=== PATIENT | male | born 1985 | race African-American/Black ===

== ENCOUNTER 2020-03-08 08:49 | Inpatient (IN) | payer MEDICAID ==
[~2020-03-08] VITALS: Ht 167.6 cm; Wt 69.2 kg
[2020-03-08] MEDS ORDERED: SODIUM CHLORIDE 0.9% 1000ML BAG (SEPSIS BOLUS) IV ONE (09:30)
[2020-03-08 09:46] LABS: BASOPHILS % 0.4 % (0.0-2.0); CHLORIDE 100 mEq/L (98-107); EOSINOPHILS % 0.7 % (0.0-5.0); HEMATOCRIT. 36.6 % (42.0-52.0); HEMOGLOBIN. 11.9 g/dL (14.0-18.0); LYMPHOCYTES % 7.8 % (20.0-50.0); MEAN CORPUSCULAR HEMOGLOBIN 28.6 pg (28.0-32.0); MEAN CORPUSCULAR VOLUME 87.7 fL (80.0-94.0); MONOCYTES % 10.2 % (2.0-8.0); NEUTROPHILS % 80.9 % (40.0-76.0); PLATELET 234 x1000/uL (130-400); RED BLOOD CELL COUNT 4.17 mill/uL (4.7-6.1); RED CELL DISTRIBUTION WIDTH 14.7 % (11.6-14.6)
[2020-03-08 09:51] LABS: INR 1.2; PROTHROMBIN TIME 12.5 sec (9.6-11.0)
[2020-03-08 11:37] LABS: CLARITY URINE CLOUDY (CLEAR); COLOR URINE DK YELLOW (YELLOW); KETONES URINE NEGATIVE (NEGATIVE); LEUKOCYTE ESTERASE URINE NEGATIVE (NEGATIVE); NITRITE URINE NEGATIVE (NEGATIVE); OCCULT BLOOD URINE 2+ (NEGATIVE); PROTEIN URINE 2+ (NEGATIVE); SPECIFIC GRAVITY URINE 1.031 (1.005-1.030)
[2020-03-08] MEDS ORDERED: KETOROLAC 15MG/ML VIAL IV ONE ×2 (12:15→14:00)
[2020-03-08] MEDS ORDERED: POLYVINYL ALCOHOL OPHTH DROPS 15ML BOTHEYE PRN (12:30)
[2020-03-08] MEDS ORDERED: TETRACAINE 0.5% OPHTH DROPS 4ML BOTHEYE ONE (12:30)
[2020-03-08] MEDS ORDERED: PENICILLIN G BENZATHINE 2,400,000 UNITS/4ML SYR IM ONE (12:30)
[2020-03-08] MEDS: SODIUM CHLORIDE 0.9% 1,000 ML IV SCH (14:32)
[2020-03-08 15:47] LABS: TOTAL IRON BINDING CAPACITY 199 ug/dL (250-450)
[2020-03-08] MEDS: CETIRIZINE 10MG TABLET PO SCH (16:03)
[2020-03-08] MEDS: METHYLPREDNISOLONE SOD SUCC 40 MG/ML VIAL IV SCH ×2 (16:03→22:46)
[2020-03-08] MEDS ORDERED: [UNRECOGNIZED DRUG - OTHER] XX SCH (17:15)
[2020-03-08] MEDS ORDERED: IPRATROPIUM/ALBUTEROL 0.5-3(2.5)MG/3ML NEB HHN PRN (17:15)
[2020-03-08] MEDS ORDERED: ACETAMINOPHEN 325MG TABLET PO PRN (17:15)
[2020-03-08 17:47] VITALS: BP 134/75
[2020-03-08 18:00] VITALS: BP 134/75
[2020-03-08] MEDS: ONDANSETRON HCL 4MG/2ML INJ IV PRN (19:33)
[2020-03-08] MEDS: POLYVINYL ALCOHOL OPHTH DROPS 15ML BOTHEYE SCH ×2 (19:33→23:29)
[2020-03-08 20:00] VITALS: BP 118/65
[2020-03-08] MEDS: MAGIC MOUTHWASH PO SCH (20:54)
[2020-03-08] MEDS: LEVETIRACETAM 500MG TABLET PO SCH (21:14)
[2020-03-08] MEDS: GUAIFENESIN 600MG ER TABLET PO SCH (21:14)
[2020-03-08 21:40] VITALS: BP 130/76
[2020-03-08] MEDS ORDERED: FOLI-43 PO (22:19)
[2020-03-08] MEDS ORDERED: AMLO5TAB88 PO (22:19)
[2020-03-08] MEDS ORDERED: PHEN100C12 PO (22:19)
[2020-03-08] MEDS ORDERED: LEVE500T19 PO (22:19)
[2020-03-08] MEDS: HYDROCORTISONE 1% CREAM 30GM TOP SCH (22:45)
[2020-03-08] MEDS: FLUTICASONE PROPIONATE 50MCG/SPRAY BOTTLE BOTHNSTRLS SCH (22:45)
[2020-03-09] VITALS: BP 131/79
[2020-03-09 01:07] LABS: *AMPHETAMINES SCREEN URINE NEGATIVE (NEGATIVE); *BARBITURATES SCREEN URINE NEGATIVE (NEGATIVE)
[2020-03-09 01:08] LABS: *BENZODIAZEPINES SCREEN URINE NEGATIVE (NEGATIVE); *COCAINE SCREEN URINE NEGATIVE (NEGATIVE); CANNABINOID URINE SCREEN NEGATIVE (NEGATIVE); METHADONE URINE SCREEN NEGATIVE (NEGATIVE); OPIATES URINE SCREEN NEGATIVE (NEGATIVE); PHENCYCLIDINE URINE SCREEN NEGATIVE (NEGATIVE)
[2020-03-09] MEDS: HYDROCODONE/ACETAMINOPHEN 5/325MG TABLET PO PRN ×4 (02:57→21:08)
[2020-03-09] MEDS: SODIUM CHLORIDE 0.9% 1,000 ML IV SCH ×2 (03:47→17:06)
[2020-03-09 04:00] VITALS: BP 110/73
[2020-03-09] MEDS: POLYVINYL ALCOHOL OPHTH DROPS 15ML BOTHEYE SCH ×3 (05:07→16:26)
[2020-03-09] MEDS: METHYLPREDNISOLONE SOD SUCC 40 MG/ML VIAL IV SCH ×2 (05:08→13:14)
[2020-03-09 06:38] LABS: CHLORIDE 103 mEq/L (98-107)
[2020-03-09 06:56] LABS: HEMOGLOBIN. 11.7 g/dL (14.0-18.0); MEAN CORPUSCULAR HEMOGLOBIN 29.3 pg (28.0-32.0); MEAN CORPUSCULAR VOLUME 88.2 fL (80.0-94.0); MEAN PLATELET VOLUME 8.4 fl (7.4-10.4); PLATELET 248 x1000/uL (130-400); RED BLOOD CELL COUNT 3.97 mill/uL (4.7-6.1); RED CELL DISTRIBUTION WIDTH 14.7 % (11.6-14.6)
[2020-03-09 08:00] VITALS: BP 96/67
[2020-03-09] MEDS: GUAIFENESIN 600MG ER TABLET PO SCH ×2 (08:42→21:08)
[2020-03-09] MEDS: FLUTICASONE PROPIONATE 50MCG/SPRAY BOTTLE BOTHNSTRLS SCH ×2 (08:42→21:10)
[2020-03-09] MEDS: CETIRIZINE 10MG TABLET PO SCH (08:42)
[2020-03-09] MEDS: HYDROCORTISONE 1% CREAM 30GM TOP SCH ×2 (08:43→21:10)
[2020-03-09] MEDS: MAGIC MOUTHWASH PO SCH ×3 (08:43→16:27)
[2020-03-09] MEDS: LEVETIRACETAM 500MG TABLET PO SCH ×2 (08:45→21:08)
[2020-03-09 12:00] VITALS: BP 120/83
[2020-03-09 14:59] LABS: PLATELET ESTIMATE NORMAL
[2020-03-09 16:00] VITALS: BP 123/86
[2020-03-09 17:16] LABS: CARCINO EMBRYONIC ANTIGEN 0.6 ng/ml
[2020-03-09 17:28] LABS: HEPATITIS B SURFACE ANTIGEN NEGATIVE
[2020-03-09 17:57] LABS: HEPATITIS A AB IGM NEGATIVE (NEGATIVE)
[2020-03-09 20:00] VITALS: BP 131/8
[2020-03-10] VITALS (7 sets, daily range): BP systolic 114–138; BP diastolic 74–92
[2020-03-10] MEDS: POLYVINYL ALCOHOL OPHTH DROPS 15ML BOTHEYE SCH ×4 (01:06→18:22)
[2020-03-10] MEDS: HYDROCODONE/ACETAMINOPHEN 5/325MG TABLET PO PRN ×4 (06:16→22:50)
[2020-03-10 07:11] LABS: HEMATOCRIT. 34.1 % (42.0-52.0); HEMOGLOBIN. 11.4 g/dL (14.0-18.0); MEAN CORPUSCULAR VOLUME 87.1 fL (80.0-94.0); MEAN PLATELET VOLUME 8.3 fl (7.4-10.4); PLATELET 297 x1000/uL (130-400); RED BLOOD CELL COUNT 3.92 mill/uL (4.7-6.1); RED CELL DISTRIBUTION WIDTH 14.4 % (11.6-14.6)
[2020-03-10 07:47] LABS: CHLORIDE 103 mEq/L (98-107)
[2020-03-10] MEDS: GUAIFENESIN 600MG ER TABLET PO SCH ×2 (08:22→20:52)
[2020-03-10] MEDS: LEVETIRACETAM 500MG TABLET PO SCH ×2 (08:23→20:52)
[2020-03-10] MEDS: FLUTICASONE PROPIONATE 50MCG/SPRAY BOTTLE BOTHNSTRLS SCH ×2 (08:23→20:53)
[2020-03-10] MEDS: CETIRIZINE 10MG TABLET PO SCH (08:23)
[2020-03-10] MEDS: MAGIC MOUTHWASH PO SCH ×3 (08:24→18:22)
[2020-03-10] MEDS: HYDROCORTISONE 1% CREAM 30GM TOP SCH ×2 (08:24→20:54)
[2020-03-10] MEDS: SODIUM CHLORIDE 0.9% 1,000 ML IV SCH ×2 (10:39→23:04)
[2020-03-10] MEDS ORDERED: POTASSIUM CHLORIDE INJ 40 MEQ in DEXT 5% WATER 250 ML IV SCH (11:00)
[2020-03-10 13:22] LABS: PLATELET ESTIMATE NORMAL
[2020-03-10] MEDS: ACETAMINOPHEN 325MG TABLET PO PRN ×2 (20:52→22:01)
[2020-03-11 00:15] VITALS: BP 115/76
[2020-03-11] MEDS: POLYVINYL ALCOHOL OPHTH DROPS 15ML BOTHEYE SCH ×4 (00:48→17:12)
[2020-03-11 04:00] VITALS: BP 127/79
[2020-03-11 04:08] LABS: HIV SCREEN 4G Non Reactive (Non Reactive)
[2020-03-11 06:52] LABS: CHLORIDE 101 mEq/L (98-107)
[2020-03-11 06:56] LABS: HEMATOCRIT. 33.2 % (42.0-52.0); MEAN CORPUSCULAR HEMOGLOBIN 29.2 pg (28.0-32.0); MEAN CORPUSCULAR VOLUME 87.9 fL (80.0-94.0); MEAN PLATELET VOLUME 8.3 fl (7.4-10.4); PLATELET 311 x1000/uL (130-400); RED BLOOD CELL COUNT 3.78 mill/uL (4.7-6.1); RED CELL DISTRIBUTION WIDTH 14.6 % (11.6-14.6)
[2020-03-11 08:00] VITALS: BP 131/81
[2020-03-11] MEDS: LEVETIRACETAM 500MG TABLET PO SCH ×2 (09:00→20:14)
[2020-03-11] MEDS: FLUTICASONE PROPIONATE 50MCG/SPRAY BOTTLE BOTHNSTRLS SCH ×2 (09:00→20:22)
[2020-03-11] MEDS: GUAIFENESIN 600MG ER TABLET PO SCH ×2 (09:12→20:12)
[2020-03-11] MEDS: CETIRIZINE 10MG TABLET PO SCH (09:12)
[2020-03-11] MEDS: HYDROCORTISONE 1% CREAM 30GM TOP SCH ×2 (09:14→20:22)
[2020-03-11] MEDS: MAGIC MOUTHWASH PO SCH ×3 (09:14→17:12)
[2020-03-11] MEDS: HYDROCODONE/ACETAMINOPHEN 5/325MG TABLET PO PRN ×3 (09:22→18:11)
[2020-03-11 12:00] VITALS: BP 140/82
[2020-03-11] MEDS: SODIUM CHLORIDE 0.9% 1,000 ML IV SCH ×2 (13:15→20:26)
[2020-03-11 13:41] LABS: PLATELET ESTIMATE NORMAL
[2020-03-11 16:00] VITALS: BP 135/62
[2020-03-11 20:00] VITALS: BP 156/84
[2020-03-11] MEDS: ACETAMINOPHEN 325MG TABLET PO PRN (20:13)
[2020-03-12] VITALS: BP 123/73
[2020-03-12] MEDS: POLYVINYL ALCOHOL OPHTH DROPS 15ML BOTHEYE SCH ×6 (00:09→20:54)
[2020-03-12 04:00] VITALS: BP 144/93
[2020-03-12 08:00] VITALS: BP 147/97
[2020-03-12] MEDS: LEVETIRACETAM 500MG TABLET PO SCH ×2 (09:00→20:51)
[2020-03-12] MEDS: GUAIFENESIN 600MG ER TABLET PO SCH ×2 (09:00→20:51)
[2020-03-12] MEDS: CETIRIZINE 10MG TABLET PO SCH (09:00)
[2020-03-12] MEDS: MAGIC MOUTHWASH PO SCH ×3 (09:00→17:00)
[2020-03-12] MEDS: HYDROCORTISONE 1% CREAM 30GM TOP SCH ×2 (09:03→20:53)
[2020-03-12 09:30] LABS: HEMATOCRIT. 34.7 % (42.0-52.0); HEMOGLOBIN. 11.4 g/dL (14.0-18.0); MEAN CORPUSCULAR HEMOGLOBIN 28.8 pg (28.0-32.0); MEAN CORPUSCULAR VOLUME 87.6 fL (80.0-94.0); MEAN PLATELET VOLUME 8.3 fl (7.4-10.4); PLATELET 318 x1000/uL (130-400); RED BLOOD CELL COUNT 3.96 mill/uL (4.7-6.1); RED CELL DISTRIBUTION WIDTH 14.6 % (11.6-14.6)
[2020-03-12 09:38] LABS: CHLORIDE 100 mEq/L (98-107)
[2020-03-12 12:00] VITALS: BP 145/92
[2020-03-12] MEDS: SODIUM CHLORIDE 0.9% 1,000 ML IV SCH ×2 (12:55→20:53)
[2020-03-12 13:07] LABS: ANTI-MYELOPEROXIDASE AB < 9.0 U/mL (0.0-9.0); ANTI-PROTEINASE 3 ABS < 3.5 U/mL (0.0-3.5); ATYPICAL P-ANCA <1:20 titer (Neg:<1:20); CYTOPLASMIC C-ANCA <1:20 titer (Neg:<1:20); PERINUCLEAR P-ANCA <1:20 titer (Neg:<1:20)
[2020-03-12 14:07] LABS: PLATELET ESTIMATE NORMAL
[2020-03-12 16:00] VITALS: BP 158/84
[2020-03-12] MEDS: CEFTRIAXONE 1,000 MG in DEXTROSE 5% WATER 50 ML IV SCH (17:40)
[2020-03-12] MEDS ORDERED: SODIUM CHLORIDE 0.9% 500 ML IV ONE ×2 (18:20→18:30)
[2020-03-12] MEDS ORDERED: METOPROLOL TARTRATE 25MG TABLET PO NR (18:45)
[2020-03-12] MEDS ORDERED: ACETAMINOPHEN 650MG/20.3ML UDC PO PRN (20:05)
[2020-03-12] MEDS: THROAT LOZENGES-BENZOCAINE/MENTH/CETYLPYRD CL LOZENGES MM PRN (20:49)
[2020-03-12] MEDS: ONDANSETRON HCL 4MG/2ML INJ IV PRN (20:51)
[2020-03-12] MEDS: HYDROCODONE/ACETAMINOPHEN 5/325MG TABLET PO PRN (20:52)
[2020-03-12] MEDS ORDERED: HYDROXYCHLOROQUINE SULFATE 200MG TABLET PO SCH (23:45)
[2020-03-12] MEDS ORDERED: CELECOXIB 200MG CAPSULE PO SCH (23:45)
[2020-03-13] VITALS: BP 124/85
[2020-03-13] MEDS: POLYVINYL ALCOHOL OPHTH DROPS 15ML BOTHEYE SCH ×3 (06:00→21:16)
[2020-03-13 07:10] LABS: DRVVT LA 50.5 sec (0.0-47.0); DRVVT MIX LA 42.7 sec (0.0-47.0); LUPUS ANTICOAG INTERPRETATION Comment: (.); PTT-LA 45.8 sec (0.0-51.9)
[2020-03-13 07:33] LABS: HEMOGLOBIN. 11.5 g/dL (14.0-18.0); MEAN CORPUSCULAR HEMOGLOBIN 29.3 pg (28.0-32.0); MEAN CORPUSCULAR VOLUME 86.8 fL (80.0-94.0); MEAN PLATELET VOLUME 7.9 fl (7.4-10.4); PLATELET 415 x1000/uL (130-400); RED BLOOD CELL COUNT 3.92 mill/uL (4.7-6.1); RED CELL DISTRIBUTION WIDTH 14.3 % (11.6-14.6)
[2020-03-13 07:47] LABS: CHLORIDE 101 mEq/L (98-107)
[2020-03-13 08:00] VITALS: BP 112/72
[2020-03-13 08:00] LABS: CREATINE KINASE 36 IU/L (39-308)
[2020-03-13 08:01] LABS: FOLIC ACID (FOLATE) SERUM 17.2 ng/mL (>5.38)
[2020-03-13] MEDS: CELECOXIB 200MG CAPSULE PO SCH ×2 (09:00→16:14)
[2020-03-13] MEDS: LEVETIRACETAM 500MG TABLET PO SCH ×2 (09:00→21:00)
[2020-03-13] MEDS: HYDROXYCHLOROQUINE SULFATE 200MG TABLET PO SCH ×2 (09:00→16:14)
[2020-03-13] MEDS: TRIAMCINOLONE ACETONIDE 0.1% CREAM 15GM TOP SCH ×2 (09:00→21:00)
[2020-03-13] MEDS: MAGIC MOUTHWASH PO SCH ×3 (09:00→16:14)
[2020-03-13] MEDS: CETIRIZINE 10MG TABLET PO SCH (09:00)
[2020-03-13] MEDS: HYDROCORTISONE 1% CREAM 30GM TOP SCH ×2 (09:00→21:00)
[2020-03-13] MEDS: GUAIFENESIN 600MG ER TABLET PO SCH ×2 (09:00→21:00)
[2020-03-13 11:49] LABS: PLATELET ESTIMATE NORMAL
[2020-03-13 12:00] VITALS: BP 120/63
[2020-03-13] MEDS ORDERED: POTASSIUM CHLORIDE INJ 40 MEQ in DEXT 5% WATER 250 ML IV SCH (14:00)
[2020-03-13 16:00] VITALS: BP 126/63
[2020-03-13] MEDS: ACETAMINOPHEN 325MG TABLET PO PRN (16:13)
[2020-03-13 17:06] LABS: ANTI-NUCLEAR ANTIBODIES DIRECT Positive (Negative)
[2020-03-13] MEDS: CEFTRIAXONE 1,000 MG in DEXTROSE 5% WATER 50 ML IV SCH (17:30)
[2020-03-14 00:44] VITALS: BP 135/81
[2020-03-14 04:00] VITALS: BP 130/85
[2020-03-14] MEDS: POLYVINYL ALCOHOL OPHTH DROPS 15ML BOTHEYE SCH ×4 (05:51→23:11)
[2020-03-14] MEDS: SODIUM CHLORIDE 0.9% 1,000 ML IV SCH ×2 (05:51→12:45)
[2020-03-14 09:10] LABS: G6PD RBC 3.76 x10E6/uL (4.14-5.80)
[2020-03-14 09:55] VITALS: BP 118/69
[2020-03-14] MEDS: MAGIC MOUTHWASH PO SCH ×3 (10:27→17:24)
[2020-03-14] MEDS: TRIAMCINOLONE ACETONIDE 0.1% CREAM 15GM TOP SCH ×2 (10:29→20:41)
[2020-03-14] MEDS: HYDROXYCHLOROQUINE SULFATE 200MG TABLET PO SCH ×2 (10:41→17:24)
[2020-03-14] MEDS: GUAIFENESIN 600MG ER TABLET PO SCH ×2 (10:42→20:41)
[2020-03-14] MEDS: CETIRIZINE 10MG TABLET PO SCH (10:43)
[2020-03-14] MEDS: CELECOXIB 200MG CAPSULE PO SCH ×2 (10:43→17:24)
[2020-03-14] MEDS: LEVETIRACETAM 500MG TABLET PO SCH ×2 (10:44→20:35)
[2020-03-14] MEDS ORDERED: METHYLPREDNISOLONE SOD SUCC 40 MG/ML VIAL IV NR (11:00)
[2020-03-14 11:20] LABS: CHLORIDE 98 mEq/L (98-107)
[2020-03-14 12:05] LABS: HEPATITIS B SURFACE AB 3.3 mIU/mL
[2020-03-14 12:15] LABS: HEPATITIS B SURFACE ANTIGEN NEGATIVE
[2020-03-14 12:44] VITALS: BP 114/73
[2020-03-14] MEDS ORDERED: EZ-HD SUSPENSION(BARIUM SULFATE 340GM) PO ONE (12:51)
[2020-03-14] MEDS ORDERED: BARIUM SULFATE 176 GM SUSP.RECON ONE (12:51)
[2020-03-14] MEDS ORDERED: SIMETHICONE/SOD BICARB/CIT AC 1 EACH GRAN.EF.PK ONE (12:52)
[2020-03-14 15:10] LABS: RNP ANTIBODY 3.5 AI (0.0-0.9); SMITH ANTIBODY < 0.2 AI (0.0-0.9)
[2020-03-14] MEDS: HYDROCORTISONE 1% CREAM 30GM TOP SCH ×2 (15:10→20:41)
[2020-03-14 15:49] LABS: BASOPHILS % 0.3 % (0.0-2.0); EOSINOPHILS % 0.1 % (0.0-5.0); HEMATOCRIT. 39.3 % (42.0-52.0); LYMPHOCYTES % 7.6 % (20.0-50.0); MEAN CORPUSCULAR HEMOGLOBIN 29.1 pg (28.0-32.0); MEAN CORPUSCULAR VOLUME 87.8 fL (80.0-94.0); MEAN PLATELET VOLUME 7.2 fl (7.4-10.4); PLATELET 491 x1000/uL (130-400); RED BLOOD CELL COUNT 4.47 mill/uL (4.7-6.1); RED CELL DISTRIBUTION WIDTH 14.4 % (11.6-14.6)
[2020-03-14] MEDS: CEFTRIAXONE 1,000 MG in DEXTROSE 5% WATER 50 ML IV SCH (16:50)
[2020-03-14 16:58] VITALS: BP 124/79
[2020-03-14] MEDS: LORAZEPAM 2MG/ML CPJ IV PRN ×2 (18:10→23:11)
[2020-03-14 21:25] VITALS: BP 119/78
[2020-03-15 01:35] VITALS: BP 108/63
[2020-03-15] MEDS: SODIUM CHLORIDE 0.9% 1,000 ML IV SCH ×2 (03:31→17:56)
[2020-03-15] MEDS: POLYVINYL ALCOHOL OPHTH DROPS 15ML BOTHEYE SCH ×4 (06:00→23:51)
[2020-03-15 06:10] VITALS: BP 144/84
[2020-03-15 07:32] LABS: HEMATOCRIT. 33.5 % (42.0-52.0); HEMOGLOBIN. 11.3 g/dL (14.0-18.0); MEAN CORPUSCULAR HEMOGLOBIN 29.1 pg (28.0-32.0); MEAN CORPUSCULAR VOLUME 86.4 fL (80.0-94.0); MEAN PLATELET VOLUME 7.5 fl (7.4-10.4); PLATELET 434 x1000/uL (130-400); RED BLOOD CELL COUNT 3.87 mill/uL (4.7-6.1); RED CELL DISTRIBUTION WIDTH 14.7 % (11.6-14.6)
[2020-03-15 08:03] VITALS: BP 117/86
[2020-03-15 08:23] LABS: CHLORIDE 104 mEq/L (98-107)
[2020-03-15] MEDS: LEVETIRACETAM 500MG TABLET PO SCH ×2 (09:00→21:00)
[2020-03-15] MEDS: MAGIC MOUTHWASH PO SCH ×3 (09:41→17:57)
[2020-03-15] MEDS: TRIAMCINOLONE ACETONIDE 0.1% CREAM 15GM TOP SCH ×2 (09:42→21:00)
[2020-03-15] MEDS: HYDROCORTISONE 1% CREAM 30GM TOP SCH ×2 (09:43→21:00)
[2020-03-15] MEDS: METHOTREXATE SODIUM 2 . 5MG TABLET PO SCH ×3 (09:43→17:58)
[2020-03-15] MEDS: PREDNISONE 10MG TABLET PO SCH ×2 (09:44→17:58)
[2020-03-15] MEDS: HYDROXYCHLOROQUINE SULFATE 200MG TABLET PO SCH ×2 (09:44→17:57)
[2020-03-15] MEDS: CELECOXIB 200MG CAPSULE PO SCH ×2 (09:44→17:57)
[2020-03-15] MEDS: CETIRIZINE 10MG TABLET PO SCH (09:44)
[2020-03-15] MEDS: FOLIC ACID 1MG TABLET PO SCH (09:45)
[2020-03-15] MEDS: THROAT LOZENGES-BENZOCAINE/MENTH/CETYLPYRD CL LOZENGES MM PRN (09:45)
[2020-03-15] MEDS: GUAIFENESIN 600MG ER TABLET PO SCH ×2 (09:45→21:00)
[2020-03-15 10:01] LABS: ATYPICAL LYMPHOCYTES 1
[2020-03-15 10:03] LABS: PLATELET ESTIMATE SLIGHTLY INCREASED
[2020-03-15 12:00] VITALS: BP 141/79
[2020-03-15 16:19] VITALS: BP 129/87
[2020-03-15] MEDS: CEFTRIAXONE 1,000 MG in DEXTROSE 5% WATER 50 ML IV SCH (17:56)
[2020-03-15] MEDS ORDERED: PHENOL/SODIUM PHENOLATE 1.4% SRPAY 177ML MM ONE (18:00)
[2020-03-15 20:00] VITALS: BP 122/84
[2020-03-16] MEDS: POLYVINYL ALCOHOL OPHTH DROPS 15ML BOTHEYE SCH ×2 (05:07→12:00)
[2020-03-16] MEDS: SODIUM CHLORIDE 0.9% 1,000 ML IV SCH (06:11)
[2020-03-16 07:53] LABS: HEMATOCRIT. 35.1 % (42.0-52.0); HEMOGLOBIN. 11.6 g/dL (14.0-18.0); MEAN CORPUSCULAR HEMOGLOBIN 28.8 pg (28.0-32.0); MEAN CORPUSCULAR VOLUME 87.2 fL (80.0-94.0); MEAN PLATELET VOLUME 7.4 fl (7.4-10.4); PLATELET 497 x1000/uL (130-400); RED BLOOD CELL COUNT 4.02 mill/uL (4.7-6.1); RED CELL DISTRIBUTION WIDTH 14.6 % (11.6-14.6)
[2020-03-16 08:22] VITALS: BP 130/87
[2020-03-16] MEDS: HYDROXYCHLOROQUINE SULFATE 200MG TABLET PO SCH (09:00)
[2020-03-16] MEDS: PREDNISONE 10MG TABLET PO SCH (09:00)
[2020-03-16] MEDS: TRIAMCINOLONE ACETONIDE 0.1% CREAM 15GM TOP SCH (09:00)
[2020-03-16] MEDS: CELECOXIB 200MG CAPSULE PO SCH (09:00)
[2020-03-16] MEDS: MAGIC MOUTHWASH PO SCH ×2 (09:00→13:00)
[2020-03-16] MEDS: CETIRIZINE 10MG TABLET PO SCH (09:00)
[2020-03-16] MEDS: FOLIC ACID 1MG TABLET PO SCH (09:00)
[2020-03-16] MEDS: HYDROCORTISONE 1% CREAM 30GM TOP SCH (09:00)
[2020-03-16] MEDS: GUAIFENESIN 600MG ER TABLET PO SCH (09:00)
[2020-03-16] MEDS: LEVETIRACETAM 500MG TABLET PO SCH (09:00)
[2020-03-16 09:02] LABS: CHLORIDE 103 mEq/L (98-107)
[2020-03-16 12:13] VITALS: BP 143/71
[2020-03-16 13:49] LABS: PLATELET ESTIMATE INCREASED
[2020-03-16] MEDS ORDERED: POTASSIUM CHLORIDE 20MEQ TABLET SR PO NR (14:15)
[2020-03-16] MEDS ORDERED: GUAI-735 MT (15:26)
[2020-03-16] MEDS ORDERED: POLY15DR31 EACHEYE (15:26)
[2020-03-16] MEDS ORDERED: HC A30CR10 RC (15:26)
[2020-03-16] MEDS ORDERED: PHEN20SP MT (15:26)
[2020-03-16] MEDS ORDERED: CELE200C PO (15:26)
[2020-03-16] MEDS ORDERED: HYDR200T35 PO (15:26)
[2020-03-16] MEDS ORDERED: CETI10TA6 PO (15:26)
[2020-03-16] MEDS ORDERED: PRED10TA PO (15:26)
[2020-03-16] MEDS ORDERED: PANT40TA4 MT (15:26)
[2020-03-16] MEDS ORDERED: METH2.5T PO (15:26)
[2020-03-16] MEDS ORDERED: TC1C15 TOP (15:26)
[2020-03-16] MEDS ORDERED: XLV MT (15:26)
[2020-03-16] MEDS ORDERED: GUAI-740 MT (15:29)
[2020-03-16 15:48] VITALS: BP 151/98
[2020-03-16 16:18] VITALS: BP 151/98
[2020-03-16] MEDS ORDERED: LEUC5TAB PO (17:00)
== END 2020-03-16 17:18 | disposition home or self-care (01) | DRG 346 ==
LOC: ER 09:09 → 5WST 13:30 → EDBEDREQ 13:33 → EDBEDREQSVC 13:33 → ENRESERV 15:31 → 7EST 21:42 → 6WST 03-09 21:40
PROVIDERS: ADMIT Internal Medicine; ATTEND Internal Medicine
PROC: 3E0U3BZ Introduction of Anesthetic Agent into Joints, Percutaneous Approach (ICD-10-PCS; principal; 2020-03-14)
PROC: 3E0U33Z Introduction of Anti-inflammatory into Joints, Percutaneous Approach (ICD-10-PCS; 2020-03-14)
DX: M35.1 Other overlap syndromes (principal); L51.1 Stevens-Johnson syndrome; D64.9 Anemia, unspecified; G40.909 Epilepsy, unspecified, not intractable, without status epilepticus; I10 Essential (primary) hypertension; B16.9 Acute hepatitis B without delta-agent and without hepatic coma; F17.210 Nicotine dependence, cigarettes, uncomplicated; M19.012 Primary osteoarthritis, left shoulder; D72.810 Lymphocytopenia; D72.825 Bandemia; I77.6 Arteritis, unspecified; D72.821 Monocytosis (symptomatic); K12.1 Other forms of stomatitis; M06.9 Rheumatoid arthritis, unspecified; M11.20 Other chondrocalcinosis, unspecified site; M32.9 Systemic lupus erythematosus, unspecified; M75.00 Adhesive capsulitis of unspecified shoulder; R80.9 Proteinuria, unspecified; R47.02 Dysphasia; Z20.828 Contact with and (suspected) exposure to other viral communicable diseases; M25.511 Pain in right shoulder; R31.9 Hematuria, unspecified; R65.10 Systemic inflammatory response syndrome (SIRS) of non-infectious origin without acute organ dysfunction; D75.A Glucose-6-phosphate dehydrogenase (G6PD) deficiency without anemia; Z59.0 Homelessness; B19.10 Unspecified viral hepatitis B without hepatic coma
CPT/HCPCS: 36415; 70490; 71045; 73030; 73221; 74220; 80048; 80053; 80076; 80305; 80320; 81003; 82085; 82105; 82164; 82378; 82550; 82595; 82607; 82728; 82746; 82955; 83520; 83540; 83550; 83605; 83615; 83625; 84145; 84156; 84484; 84550; 85025; 85041; 85379; 85613; 85651; 85732; 86038; 86140; 86160; 86225; 86235; 86256; 86431; 86592; 86705; 86706; 86709; 86780; 86803; 87070; 87340; 87389; 87430; 87517; 87635; 92610; 93005; 93306; 99285; C1893; J0561; J0696; J1885; J2060; J2405; J2920; J3480; J7030; J7040; J7060; J7512; J7517; J8610; G0480